=== PATIENT | male | born 1990 | race Native Hawaiian/Other Pacific Islander ===

== ENCOUNTER 2017-01-19 21:45 | Emergency (ER) | payer OTHER ==
--- NOTE | 2017-01-19 21:57 | ED.REPORT ---
HPI-Psychiatric Illness Date of Service Jan 19, 2017 ED Provider: Suleiman Wise DO Patient is a 26 year old male with a history of schizophrenia who was brought to the ED via [employer] due to having auditory hallucinations. Per the [employer], the patient was pointing to a back pack saying it was moving and that he was in there. He was also claiming he was hearing loud noises when the [employer] could not hear any. The patient states that his was kidnapped earlier today and that his children never showed up to see him. He reports that he has stopped taking his medication for the past three months. Patient denies having suicidal or homicidal ideations. Nursing Notes Stated Complaint: INVOLUNTARY MENTAL HEALTH Chief Complaint: Psychiatric Complaint Nursing Notes Reviewed: Yes Allergies: Coded Allergies: No Known Allergies (Unverified , 01/19/17) General Time Seen by MD: 21:56 Chief Complaint Other (hallucinations) Hx Obtained From: Patient Arrived By: Police Onset Occurred: Just prior to arrival Risk-Psychiatric Illness Suicide Risk Stratification RF Statements: Risk factors N/A Past Medical History Past Medical History schizophrenia Social History Alcohol Use: "Social" Other Social History: , Local resident Ambulatory Status Independent Review of Systems Review of Systems Note: limited ROS due to patient's mental status Psychiatric: Reports: Hallucinations, auditory, Denies: Homicidal ideation, Suicidal ideation Complete sys rev & neg: except as marked. Physical Exam Initial Vital Signs Vital Signs (First) Date Time Temp Pulse Resp B/P Pulse Ox O2 Delivery O2 Flow Rate FiO2 01/19/17 22:12 128 20 147/103 96 Initial VS: Reviewed General/Constitutional: Awake, Alert Neurologic: Oriented X3, Speech NL, No motor deficits, No sensory deficits Abnormal Mood/Affect: Positive: Anxious, Fearful, Irritable, Pressured speech Abnormal Thinking / Perception: Positive: Delusions - paranoid, Flight of ideas , Negative: Hallucinations, auditory, Hallucinations, visual, Homicidal, with plan, Suicidal, with plan Head / Eyes: Atraumatic, Normocephalic, PERRL, EOMI ENT: Atraumatic, Airway patent, Mucous membranes moist Respiratory / Chest: Atraumatic, Breath sounds NL, Breath sounds = bilat, No respiratory distress Cardiovascular: Heart rate NL, Regular rhythm, Heart sounds NL Abdomen: Soft, Non-tender Skin: Atraumatic, Color NL, No rash, Warm, Dry Neck: Supple, Full range of motion Upper Extremity / MS: Atraumatic, Full range of motion Interpretation & Diagnostics Lab Results Interpretation Result Diagram: 01/19/17232401/19/172324 Test 01/19/17 22:37 01/19/17 23:25 Hold Urine Received (Received) White Blood Count 15.8th/mm3 (3.8-10.1) Red Blood Count 6.13mil/mm3 (4.40-5.80) Hemoglobin 16.2g/dL (13.8-17.2) Hematocrit 50.6% (41.0-50.0) Mean Corpuscular Volume 82.5fL (81-100) Mean Corpuscular Hemoglobin 26.4pg (27.0-35.0) Mean Corpuscular Hemoglobin Concent 32.0% (32.0-37.0) Red Cell Distribution Width 13.1% (12.3-15.4) Platelet Count 382bil/L (150-400) Neutrophils (%) (Auto) 78.6% (40-74) Lymphocytes (%) (Auto) 15.1% (14-46) Monocytes (%) (Auto) 5.6% (4-12) Eosinophils (%) (Auto) 0.3% (0-5) Basophils (%) (Auto) 0.1% (0-3) Band Neutrophils % 0% (1-5) Sodium Level 134mEq/L (134-144) Potassium Level 4.3mEq/L (3.5-5.2) Chloride Level 92mEq/L (97-108) Carbon Dioxide Level 23mmol/L (18-29) Blood Urea Nitrogen 21mg/dL (6-20) Creatinine 1.14mg/dL (0.76-1.27) Estimat Glomerular Filtration Rate 81mL/min (>59) Glucose Level 308mg/dL (60-99) Calcium Level 10.2mg/dL (8.5-10.1) Total Bilirubin 1.2mg/dL (0.0-1.2) Aspartate Amino Transf (AST/SGOT) 74U/L (0-50) Alanine Aminotransferase (ALT/SGPT) 110U/L (0-44) Alkaline Phosphatase 106U/L (25-150) Total Protein 9.5g/dL (6.4-8.4) Albumin 5.5g/dL (3.4-5.0) Thyroid Stimulating Hormone (TSH) 1.360uIU/mL (0.450-4.500) Re-Eval/Medical Decision Med Decision/Clinical Course 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 He is medicated with Zyprexa 15mg ODT and Benadryl 50mg PO. He is resting comfortably. We will plan to reevaluate once he appears more sober. Source of Hx: Old records Consultation : Call Returned at: 22:35 Note: Talked to the patient's and daughter who are both safe at home. They say that they have not seen the patient for the past 5 days and think he may have been on a drug binge. The patient's family also say that he used to take pain medication. wifes phone number rosalia manzano [phone] Discharge & Departure Shift Change Sign-Out Patient Care Transferred: Yes Discussed Complaint(s): Yes Laboratory Evaluation: Lab evaluation discussed Impression: Primary Impression: Psychoses Discharge Condition All VS Reviewed: Yes Condition: Stable Care Transferred to: [facility] Transferred at: 03:00 Paramjit Attestation Portions of this note were transcribed by Michelle Mejía. I, Dr. Wise personally performed the history, physical exam and medical decision-making; I reviewed and confirmed the accuracy of the information in the transcribed note. Signed by: Paramjit Romo, 01/20/17 and 0012. Suleiman Wise DO Jan 19, 2017 21:57 Yamile Mejía Jan 19, 2017 22:09
[2017-01-19 22:12] VITALS: BP 147/103; PULSE 128; RESP 20; O2SAT 96
[2017-01-19] MEDS ORDERED: OLANZapine Zydis ODT 5 mg Tablet PO ONE ×4 (22:15→23:45)
[2017-01-19] MEDS ORDERED: diphenhydrAMINE 50 mg Capsule PO ONE (22:50)
[2017-01-19] MEDS ORDERED: diphenhydrAMINE 25 mg Capsule PO ONE (23:05)
[2017-01-19 23:38] LABS: EOSINOPHILS % (AUTO) 0.3 % (0-5); MONOCYTES % (AUTO) 5.6 % (4-12); Mean Corpuscular Hemoglobin 26.4 pg (27.0-35.0); Mean Corpuscular Volume 82.5 fL (81-100); NEUTROPHILS % (AUTO) 78.6 % (40-74); Platelet Count 382 bil/L (150-400)
[2017-01-19 23:39] LABS: BASOPHILS % (AUTO) 0.1 % (0-3)
[2017-01-20 05:38] VITALS: BP 128/77; PULSE 92; RESP 18; O2SAT 99
[2017-01-20 07:45] VITALS: BP 127/85; PULSE 97; O2SAT 100
--- NOTE | 2017-01-20 16:40 | NUR ---
Social Work note - Mental Health assessment Eliseo Medley is a 26 yr old who was brought into ED by police. Pt was found at a motel banging on doors having hallucinations that someone had kidnapped his and children. Pt was paranoid, delusional. UDS positive for Methamphetamines. He was given Zyprexa and benedryl - slept for many hours. NUCLEAR REACTOR TECHNICIAN met with pt - pt was awake, alert and oriented. He could clearly remember his delusions and admits that his experience was very vivid. He states that he recently was from his - he states that he felt that she wanted to have an affair. He decided to move into a motel for the weekend to get a break - admits that he found a friend who hooked him up with drugs. He took meth and then was convinced that his was locked up in the next motel room and was being tortured. Pt denies any hx of mental health - states that he has not had delusions like this when he is not using drugs. He used meth and alcohol a lot as a teenager, stopped using everything 5 years ago and has been sober/clean since. MD indicated that pt was dx with Schizophrenia - Pt denies this. NUCLEAR REACTOR TECHNICIAN contacted [facility] - no previous contacts or treatment identified. Pt denies any current paranoid/delusional thoughts. He denies any suicidal or homicidal ideation. Pt has had outpt Substance Use treatment in [place] and states that he can follow up with Robby, his previous counselor. Pt gave NUCLEAR REACTOR TECHNICIAN permission to talk with his . [phone]. Pt's states that she was worried about pt - that she wanted him to come home this weekend and did not want to be . She is nervous about inviting him home tonight because she has children in the home and is upset that he did drugs. She however wants to work on their relationship. NUCLEAR REACTOR TECHNICIAN discussed with Pt - Pt states that he feels safe calling a friend from work who will pick him up and let him stay over night. He states that he understands his 's decision and wants to work on their relationship. Pt denies any needs - is aware of community resources. NUCLEAR REACTOR TECHNICIAN discussed with MD who will d/c pt home. GABRIEL Ritter
== END 2017-01-20 15:50 | disposition home or self-care (01) ==
LOC: SED 21:45
DX: F29 Unspecified psychosis not due to a substance or known physiological condition (principal); F20.9 Schizophrenia, unspecified